=== PATIENT | male | born 1940 | race Caucasian/White ===

== ENCOUNTER 2018-12-28 10:06 | Outpatient (CLI) | payer OTHER, SELFPAY ==
[2018-12-28 13:25] LABS: Anion Gap 8.4 mmol/L (3-11); BUN 19 mg/dL (7-18); CO2 30.6 mmol/L (21.0-32.0); CREATININE 1.36 mg/dL (0.70-1.30); Calcium 9.6 mg/dL (8.5-10.1); Chloride 103 mmol/L (98-107); Estimated GFR 50.81 (mL/min/1.73m2); Glucose 91 mg/dL (70-100); Potassium 4.3 mmol/L (3.5-5.1); Sodium 142 mmol/L (136-145)
== END 2018-12-28 10:26 ==
PROVIDERS: PCP Family Medicine; Visit Provider Family Medicine
DX: I10 Essential (primary) hypertension (principal)
CPT/HCPCS: 36415; 80048

== ENCOUNTER 2020-02-24 10:31 | Outpatient (CLI) | payer OTHER, SELFPAY ==
--- NOTE | 2020-02-24 10:30 | DI.RAD_ITS ---
EXAM: XR KNEE LT 3V AP,LAT,RONEY CLINICAL HISTORY: LT KNEE PAIN, M25.562 TECHNIQUE: COMPARISON: No exams were available for comparison FINDINGS: Three views were obtained. There is a total knee joint replacement in position. The components appe ar well seated. No other significant bony abnormality seen. IMPRESSION:
== END 2020-02-24 10:51 ==
PROVIDERS: PCP Family Medicine; Visit Provider Orthopaedic Surgery Adult Reconstructive Orthopaedic Surgery
DX: M25.562 Pain in left knee (principal); Z96.652 Presence of left artificial knee joint
CPT/HCPCS: 73562

== ENCOUNTER 2020-02-29 17:23 | Emergency (ER) | payer OTHER, SELFPAY ==
[2020-02-29] VITALS (17 sets, daily range): BP systolic 117–136; BP diastolic 65–86; PULSE 70–104; RESP 14–19; TEMP 36.7; O2SAT 93–97
--- NOTE | 2020-02-29 17:32 | W.ED.GENAD ---
Discharge Plan Disposition Patient Disposition: HOME Condition: Stable Discharge Details Chief Complaint: GI Bleed Clinical Impression: Rectal bleeding Primary Care Provider: Monster Saunders ED Provider: Bishop Nogueira Home Meds and New Rx's Prescriptions: Continued ibuprofen 200 MG capsule 4 cap PO PRN RF: 0 aspirin [Aspir-81] 81 MG tablet,delayed release (DR/EC) 1 tab PO DAILY RF: 0 amoxicillin 500 MG capsule 4 cap PO PRN Qty: 4 RF: 2 triamcinolone acetonide 15 GM cream 0 Topical BID Qty: 30 RF: 3 losartan-hydrochlorothiazide 50-12.5 mg tablet 1 tab PO DAILY Qty: 90 RF: 4 Discharge Instructions Instructions: Rectal Bleeding (ED) Additional Instructions: At this time laboratory values do not reveal any obvious emergent process and your vital signs are stable. I have spoken with Dr. Jacome regarding your case, an outpatient appointment has been scheduled for 9:30 AM on March 15. In the meantime stay adequately hydrated, take [id number] stool softeners and avoid straining while moving her bowels. Please watch for new or worsening symptoms and return to the ER for any concerns. Otherwise I recommend contacting your primary care provider tomorrow for prompt outpatient reevaluation Referrals: Magdalene Jacome MD [ [facility] STAFF PHYSICIAN] - Medical Decision Making 79-year-old gentleman who reports straining to move his bowels earlier today subsequently had bright red blood from his rectum during another hard, small bowel movement. He is otherwise asymptomatic. Denies any pain whatsoever. He does take a baby aspirin daily, otherwise he is not anticoagulated. He reports that his last colonoscopy nearly 10 years ago and a hemorrhoid surgery around 5 years ago, cannot give me many details regarding this. Upon presentation his heart rate was 104 blood pressure 130/86. He appears well, nontoxic, abdomen soft, nontender. Rectal exam does reveal a small amount of bright red blood however brown stool is noted, no obvious hemorrhoid noted. Sphincter tone is normal. No active bleeding identified. Given his age, will obtain routine laboratory values including coagulation studies, give IV fluid, and I will obtain an EKG given his pulse was 104 in triage although during my examination it was in the 80s. I did discuss the case with Dr. Matias. Laboratory values are unremarkable, white blood cell count of 8.66 hemoglobin 14.6 hematocrit 43.5 platelet count 301. Electrolytes unremarkable. Creatinine of 1.43, GFR 47.83 which appears to be about baseline. INR 1.0. Type and screen reveals A positive blood. Repeat vital signs reveal a heart rate in the 70s, blood pressure 117/72. Patient does not have any more bleeding while under my care. He appears well, nontoxic and remains otherwise asymptomatic. I reached out to our surgical team, Dr. Jacome, she is aware of the case, and she will be happy to evaluate the patient as an outpatient on March 15 at 9:30 AM. This was relayed to the patient. He was encouraged to stay adequately hydrated, [id number] stool softeners, and encouraged to return to the ER for new or worsening symptoms. Otherwise he will reach out to his primary care provider tomorrow for prompt outpatient reevaluation and follow-up with surgery as scheduled Medical Records Medical records reviewed: Yes I reviewed the patient's medical records. Lab Data Lab results reviewed: Yes I reviewed the patient's lab results. Lab results narrative: Laboratory Tests Range/Units 02/29/20 02/29/20 02/29/20 17:45 17:45 17:45 WBC (4.4-10.8) k/cumm 8.66 RBC (4.50-6.00) m/cumm 4.88 Hgb (13.5-17.5) g/dL 14.6 Hct (40.0-50.0) % 43.5 MCV (80-95) fL 89.1 MCH (27.0-33.0) pg 29.9 MCHC (32.0-36.0) g/dL 33.6 RDW (11.8-14.1) % 13.4 Plt Count (130-400) x1000/uL 301 MPV (8.0-11.0) fL 9.8 Immature Gran % % 0.1 Neutrophils % 51.9 Lymphocytes % 35.3 Monocytes % 8.1 Eosinophils % 4.0 Basophils % 0.6 Absolute Neutrophils (1.2-6.7) k/cumm 4.49 Absolute Lymphocytes (1.2-3.4) k/cumm 3.06 Absolute Monocytes (0.11-0.7) k/cumm 0.70 Absolute Eosinophils (0.0-0.7) k/cumm 0.35 Absolute Basophils (0.0-0.2) k/cumm 0.05 PT (9.3-11.0) sec 9.9 INR (0.9-1.1) 1.0 Sodium (136-145) mmol/L 138 Potassium (3.5-5.1) mmol/L 3.6 Chloride (98-107) mmol/L 101 Carbon Dioxide (21.0-32.0) mmol/L 25.4 Anion Gap (3-11) mmol/L 11.6 H BUN (7-18) mg/dL 20 H Creatinine (0.70-1.30) mg/dL 1.43 H Estimated GFR/1.73 m2 (mL/min/1.73m2) 47.83 Glucose (74-106) mg/dL 104 Calcium (8.5-10.1) mg/dL 9.2 Total Bilirubin (0.2-1.0) mg/dL 0.4 AST (15-37) U/L 18 ALT (16-63) U/L 18 Alkaline Phosphatase (46-116) U/L 70 Total Protein (6.4-8.2) g/dL 7.3 Albumin (3.4-5.0) g/dL 4.0 Lipase (73-393) U/L 134 Patient ABO/Rh Antibody Screen Range/Units 02/29/20 17:45 WBC (4.4-10.8) k/cumm RBC (4.50-6.00) m/cumm Hgb (13.5-17.5) g/dL Hct (40.0-50.0) % MCV (80-95) fL MCH (27.0-33.0) pg MCHC (32.0-36.0) g/dL RDW (11.8-14.1) % Plt Count (130-400) x1000/uL MPV (8.0-11.0) fL Immature Gran % % Neutrophils % Lymphocytes % Monocytes % Eosinophils % Basophils % Absolute Neutrophils (1.2-6.7) k/cumm Absolute Lymphocytes (1.2-3.4) k/cumm Absolute Monocytes (0.11-0.7) k/cumm Absolute Eosinophils (0.0-0.7) k/cumm Absolute Basophils (0.0-0.2) k/cumm PT (9.3-11.0) sec INR (0.9-1.1) Sodium (136-145) mmol/L Potassium (3.5-5.1) mmol/L Chloride (98-107) mmol/L Carbon Dioxide (21.0-32.0) mmol/L Anion Gap (3-11) mmol/L BUN (7-18) mg/dL Creatinine (0.70-1.30) mg/dL Estimated GFR/1.73 m2 (mL/min/1.73m2) Glucose (74-106) mg/dL Calcium (8.5-10.1) mg/dL Total Bilirubin (0.2-1.0) mg/dL AST (15-37) U/L ALT (16-63) U/L Alkaline Phosphatase (46-116) U/L Total Protein (6.4-8.2) g/dL Albumin (3.4-5.0) g/dL Lipase (73-393) U/L Patient ABO/Rh A Positive Antibody Screen Negative ECG Data Attestation: I personally reviewed and interpreted this ECG (s) as follows: Interpretation: EKG performed at 1746. Reviewed and interpreted with Dr. Matias. Sinus rhythm, ventricular of 74. No STEMI HPI General Mode of arrival: ambulatory. Date/Time Provider Initiated Documentation: 02/29/20 17:31. Limitations to Documentation: no limitations. Information obtained by: patient. HPI Narrative: This is a 79-year-old gentleman with chronic renal insufficiency, hypertension, diverticulosis, family history of Leiden 5 mutation, presenting to the ER for passing bright red blood from his rectum. Patient reports that this morning he had to strain to have a small hard bowel movement. Subsequently had a normal bowel movement around noon time that was may be slightly more loose than usual. Then just 30 minutes ago he thought he was going to pass gas, realized that he had blood on his underwear, subsequently had a hard bowel movement with bright red blood mixed in with brown stool. Patient is otherwise asymptomatic. He denies any feeling of lightheaded or dizziness, visual changes, chest pain, shortness of breath, abdominal pain, nausea, vomiting, back pain. There is no change in his appetite today. He believes that his last colonoscopy was approximately 10 years ago. He did have a hemorrhoid roughly 5 years ago that required surgical intervention. He takes a baby aspirin daily but is not anticoagulated. He denies easy bruising or bleeding. Denies recent illness or trauma. Related Data Home Medications Medication Instructions Recorded Confirmed aspirin [Aspir-81] 1 tab PO DAILY 11/10/14 02/29/20 ibuprofen 4 cap PO PRN 11/10/14 02/29/20 amoxicillin 4 cap PO PRN #4 cap 12/16/16 02/29/20 triamcinolone acetonide 0 TOPICAL BID #30 g 05/15/17 09/13/19 losartan 50 mg-hydrochlorothiazide 1 tab PO DAILY #90 tab-cap 10/19/19 02/29/20 12.5 mg tablet Previous Rx's Medication Instructions Recorded losartan 50 mg-hydrochlorothiazide 1 tab PO DAILY #90 tab-cap 10/19/19 12.5 mg tablet Allergies Allergy/AdvReac Type Severity Reaction Status Date / Time No Known Allergies Allergy Unverified 02/29/20 17:32 General Stated Complaint: GI Bleed CHRISTA: 2 Review of Systems Constitutional Constitutional: Denies fatigue, Denies fever(s), Denies headache(s) and Denies poor appetite Eyes Eyes: Denies change in vision ENT Ears, Nose, Mouth, and Throat: Denies headache(s) Cardiovascular Cardiovascular: Denies chest pain and Denies dyspnea Respiratory Respiratory: Denies cough and Denies dyspnea Gastrointestinal Gastrointestinal: Denies abdominal pain, Denies melena, Reports hematochezia, Reports constipation (Multiple hard, small stools), Denies diarrhea, Reports loose stools, Denies nausea and Denies vomiting Genitourinary Genitourinary: Denies hematuria and Denies dysuria Musculoskeletal Musculoskeletal: Denies back pain Integumentary/Breasts Skin/Breast: Denies rash Neurologic Neurologic: Denies headache(s) Endocrine Endocrine: Denies fatigue Hematologic/Lymphatic Hematologic/Lymphatic: Denies easy bleeding and Denies easy bruising [facility] Medical History Hemorrhoidal skin tag (Resolved) HTN (hypertension) Osteoarthritis Sigmoid diverticulosis Surgical History Andrectal including Endoscopy DISC SURGERY 05/2014 LOW BACK Extraction of cataract (~2005) EYE SURGERY (~2003) Repair of inguinal hernia LEFT Replacement of total knee joint (~2004) LEFT Vasectomy Family History Mother , 99 Essential hypertension Father , 88 No problems noted. family history Alzheimer's disease Sister No problems noted. Brother No problems noted. Brother No problems noted. Brother No problems noted. Son No problems noted. Son No problems noted. Daughter No problems noted. Social History Smoking/Tobacco Use Status: Former Tobacco Use Quit Date: 08/31/78 Alcohol Intake: never Drug use: Never Substance use type: does not use Caregiver/Support person: No Household members: spouse Communication Needs: None Pets and animals: Yes Pets and animals: dog(s) Current gender identity: male What is your relationship status?: How often do you talk on the phone with friends or family?: decline to answer How often do you get together with friends or relatives?: decline to answer How often do you attend zoroastrianism or scientology services?: decline to answer Do you belong to any clubs or organized social groups?: decline to answer Panel score (0-1 are the most socially isolated patients): 1 What type of physical activity do you participate in: decline to answer Duration: decline to answer Frequency: decline to answer Sol/Episcopalian: No preference Special sol needs: No Do you feel safe at home: Yes Do you feel safe in your relationship?: Yes Exam Const General: cooperative, healthy appearing, comfortable and no acute distress Orientation: alert, awake and oriented x3 HENMT Head: normal to inspection, normocephalic and atraumatic Face and sinus: normal facial exam Mouth: moist mucous membranes Eyes Conjunctivae: conjunctivae normal Sclera: sclerae normal Neck Neck: normal visual inspection, full ROM, no meningeal signs, trachea midline and supple Resp Effort & Inspection: normal respiratory effort and able to speak in complete sentences Auscultation: clear to auscultation bilaterally Cardio Rate: regular rate Rhythm: regular rhythm GI Inspection: normal to inspection Palpation: soft, not firm, no guarding, not rigid and nontender Auscultation: normal bowel sounds Rectal Exam: visual inspection normal, normal sphincter tone, prostate normal, heme positive stool gross blood (Scant amount) and No tenderness Back/Spine/Pelvis Back: No back tenderness Skin General skin exam: no rashes or lesions noted Neuro General: patient alert, patient awake, patient oriented x3, moves all extremities and no focal motor deficits Cranial Nerves: CN's II-XI intact bilaterally Cognition: normal cognition Speech: speech normal Gait: normal gait Motor: muscle tone normal throughout and strength 5/5 throughout Sensory Exam: no sensory deficits noted Extrem General: normal to inspection, full ROM, capillary refill normal, no pedal edema and no calf tenderness Psych Appearance: grossly normal Mental Status: mental status grossly normal Course Vital Signs Vital signs: Vital Signs Temperature 36.7 C 02/29/20 17:26 Pulse 104 H 02/29/20 17:26 Respiratory Rate 16 02/29/20 17:26 Blood Pressure 130/86 02/29/20 17:26 Pulse Oximetry 96 02/29/20 17:26 Temperature 36.7 C 02/29/20 17:26 Temperature Source Temporal Artery Scan 02/29/20 17:26 Pulse 104 H 02/29/20 17:26 Respiratory Rate 16 02/29/20 17:26 Respiratory Effort Non-Labored 02/29/20 17:30 Blood Pressure 130/86 02/29/20 17:26 Blood Pressure Position Sitting 02/29/20 17:26 Pulse Oximetry 96 02/29/20 17:26 Oxygen Delivery Method Room Air 02/29/20 17:26 Oxygen Flow Rate 0 02/29/20 17:26 Pain Level 0 02/29/20 17:26
[2020-02-29] MEDS: Normal Saline 1,000 ML 1000 ML IV (17:45)
[2020-02-29] MEDS: Normal Saline Flush 10 ML SYR IVP (17:51)
[2020-02-29 18:01] LABS: Abs Immature Grans 0.01 k/cumm (0.0-0.09); Absolute Basophil Count 0.05 k/cumm (0.0-0.2); Absolute Eosinophil Count 0.35 k/cumm (0.0-0.7); Absolute Lymphocyte Count 3.06 k/cumm (1.2-3.4); Absolute Neutrophil Count 4.49 k/cumm (1.2-6.7); Basophils % 0.6; HCT 43.5 % (40.0-50.0); HGB 14.6 g/dL (13.5-17.5); Immature Grans % 0.1 %; Lymphocytes % 35.3; Mean Corp. HGB Concentration 33.6 g/dL (32.0-36.0); Mean Corpuscular Hemoglobin 29.9 pg (27.0-33.0); Mean Corpuscular Volume 89.1 fL (80-95); Mean Platelet Volume 9.8 fL (8.0-11.0); Monocytes % 8.1; Neutrophils % 51.9; Platelet Count 301 x1000/uL (130-400); RBC 4.88 m/cumm (4.50-6.00); RBC Distribution Width 13.4 % (11.8-14.1); White Blood Cell Count 8.66 k/cumm (4.4-10.8)
[2020-02-29 18:10] LABS: Prothrombin Time 9.9 sec (9.3-11.0)
[2020-02-29 18:13] LABS: ALT 18 U/L (16-63); AST 18 U/L (15-37); Alkaline Phosphatase 70 U/L (46-116); Anion Gap 11.6 mmol/L (3-11); BUN 20 mg/dL (7-18); Bilirubin, Total 0.4 mg/dL (0.2-1.0); CO2 25.4 mmol/L (21.0-32.0); CREATININE 1.43 mg/dL (0.70-1.30); Calcium 9.2 mg/dL (8.5-10.1); Chloride 101 mmol/L (98-107); Estimated GFR 47.83 (mL/min/1.73m2); Glucose 104 mg/dL (74-106); Lipase 134 U/L (73-393); Potassium 3.6 mmol/L (3.5-5.1); Sodium 138 mmol/L (136-145); Total Protein 7.3 g/dL (6.4-8.2)
== END 2020-02-29 19:11 | disposition home or self-care (01) ==
PROVIDERS: Emergency Provider Physician Assistant; PCP Family Medicine
DX: K62.5 Hemorrhage of anus and rectum (principal); D68.51 Activated protein C resistance; N18.9 Chronic kidney disease, unspecified; I12.9 Hypertensive chronic kidney disease with stage 1 through stage 4 chronic kidney disease, or unspecified chronic kidney disease
CPT/HCPCS: 36415; 80053; 83690; 86850; 86900; 86901; 93005; 96360; 99284; 85025; 85610; 93010

== ENCOUNTER 2020-03-07 03:15 | Outpatient (CLI) | payer OTHER, SELFPAY ==
[2020-03-07 14:30] LABS: Absolute Basophil Count 0.04 k/cumm (0.0-0.2); Absolute Eosinophil Count 0.29 k/cumm (0.0-0.7); Absolute Lymphocyte Count 2.24 k/cumm (1.2-3.4); Absolute Monocyte Count 0.41 k/cumm (0.11-0.7); Basophils % 0.5; Eosinophils % 3.9; HCT 32.2 % (40.0-50.0); HGB 10.5 g/dL (13.5-17.5); Lymphocytes % 29.9; Mean Corp. HGB Concentration 32.6 g/dL (32.0-36.0); Mean Corpuscular Hemoglobin 30.2 pg (27.0-33.0); Mean Corpuscular Volume 92.5 fL (80-95); Monocytes % 5.5; Neutrophils % 60.2; Platelet Count 324 x1000/uL (130-400); RBC 3.48 m/cumm (4.50-6.00); RBC Distribution Width 13.7 % (11.8-14.1); White Blood Cell Count 7.48 k/cumm (4.4-10.8)
== END 2020-03-07 03:35 ==
PROVIDERS: PCP Family Medicine; Visit Provider Family Medicine
DX: F17.200 Nicotine dependence, unspecified, uncomplicated (principal)
CPT/HCPCS: 36415; 85025

== ENCOUNTER → 2020-03-15 09:11 | Outpatient (BNVA) | payer OTHER, SELFPAY | PROVIDERS: PCP Family Medicine; Referring Provider Family Medicine; Visit Provider Physical Therapy Assistant | DX: K62.5 Hemorrhage of anus and rectum (principal); I10 Essential (primary) hypertension; Z86.010 Personal history of colon polyps | CPT/HCPCS: 99203; 99214 ==

== ENCOUNTER 2020-05-04 06:15 | Day surgery (SDC) | payer OTHER, SELFPAY ==
[2020-05-04 06:24] VITALS: BP 122/83; PULSE 80; RESP 16; TEMP 36.5; O2SAT 93
[2020-05-04] MEDS: Lactated Ringers 1,000 ML 80 ML IV (06:45)
--- NOTE | 2020-05-04 07:22 | W.PM.HP.N ---
Date of service: 05/04/20 Time of Service: 07:22 Assessment and Plan Assessment and plan (1) Rectal bleeding: Status: Acute Assessment and plan: I advised colonoscopy. The procedure was described including the risks of perforation with need for surgery or bleeding. Patient agrees to proceed. History of Present Illness Narrative: 79 y/o male with a history of HTN presents for colonoscopy for evaluation of a 2 day episode (02/28-03/01) of bright red bleeding from his rectum. He states that when the bleeding occurred, he was having difficulty passing a BM. He states that he has held his aspirin and has not experienced any rectal bleeding since that time. Labs from 03/07/2020 Hgb 10.5, Hct 32.2. He was instructed to start a stool softener, which he did not do. His last screening was in 2014, which was remarkable for moderate sigmoid diverticula. Previous Colonoscopy in 2011 was remarkable for tubulovillious adenomatous polyp. He denies a family history of colon cancer. He denies any changes in bowel habits (other than described above) including black tarry stools, abdominal pain, diarrhea or constipation. He denies constitutional symptoms. Denies use of marijuana or any other recreational or illegal drugs. He denies chest pain, palpitations, dyspnea or dyspnea with exertion. He denies prior history or family history of adverse reactions or complications with anesthesia. Review of Systems All systems reviewed & are unremarkable except as noted in HPI and below PFSH Medical History (Updated 05/04/20 @ 07:24 by Meme Swartz MD) Hemorrhoidal skin tag (Resolved) HTN (hypertension) Osteoarthritis Sigmoid diverticulosis Surgical History Andrectal including Endoscopy DISC SURGERY 05/2014 LOW BACK Extraction of cataract (~2005) EYE SURGERY (~2003) Repair of inguinal hernia LEFT Replacement of total knee joint (~2004) LEFT Vasectomy Family History Mother , 99 Essential hypertension Father , 88 No problems noted. family history Alzheimer's disease Sister No problems noted. Brother No problems noted. Brother No problems noted. Brother No problems noted. Son No problems noted. Son No problems noted. Daughter No problems noted. Social History Smoking/Tobacco Use Status: Former Tobacco Use Quit Date: 08/31/78 Alcohol Intake: never Drug use: Never Substance use type: does not use Caregiver/Support person: No Household members: spouse Communication Needs: None Pets and animals: Yes Pets and animals: dog(s) Current gender identity: male What is your relationship status?: How often do you talk on the phone with friends or family?: decline to answer How often do you get together with friends or relatives?: decline to answer How often do you attend adventism or congregation services?: decline to answer Do you belong to any clubs or organized social groups?: decline to answer Panel score (0-1 are the most socially isolated patients): 1 What type of physical activity do you participate in: decline to answer Duration: decline to answer Frequency: decline to answer Sol/Denominational: No preference Special sol needs: No Do you feel safe at home: Yes Do you feel safe in your relationship?: Yes Meds Home Medications and Allergies Home Medications Medication Instructions Recorded Confirmed Type triamcinolone acetonide [Triderm] 1 applic TOPICAL BID #30 g 05/15/17 05/04/20 History losartan 50 mg-hydrochlorothiazide 1 tab PO DAILY #90 tab-cap 10/19/19 05/04/20 Rx 12.5 mg tablet amoxicillin 500 mg capsule 2,000 mg PO PRN #4 cap 03/06/20 05/04/20 Rx aspirin 81 mg tablet,delayed 81 mg PO DAILY 03/15/20 05/02/20 History release bisacodyl 5 mg tablet,delayed 5 mg PO ONCE #4 tab 03/15/20 05/04/20 Rx release polyethylene glycol 3350 17 238 g PO ONCE #238 gm 03/15/20 05/04/20 Rx gram/dose oral powder Allergies Allergy/AdvReac Type Severity Reaction Status Date / Time No Known Allergies Allergy Unverified 05/02/20 14:30 Exam Narrative Exam Narrative: Alert Lungs CTA Heart RRR Abdomen soft, nontender Results Last Vital Signs Temp 97.7 F 05/04/20 06:24 Pulse 80 05/04/20 06:24 Resp 16 05/04/20 06:24 BP 122/83 05/04/20 06:24 Pulse Ox 93 L 05/04/20 06:24 COVID-19 Screening Have you,or household,traveled outside [place] in last 14 days?: No Had IN PERSON contact w/suspected or confirmed C-19 person: No
--- NOTE | 2020-05-04 07:56 | BOWEL_PTH ---
PATIENT: Aly Smith LOC: [facility] U#:[id number] AGE/SX: 79/M ROOM: RE05/04/[address]: Meme Swartz MD : 1940 BED: DIS: 05/04/2020 SPEC #: [id number] RECD: 05/04/20 09:29 STATUS: KADE REQ #: [id number] RAINA: 05/04/20 07:[address]: Meme Swartz DEPT: Surgical Specimen RECD BY: Zayda Ellis ENTERED: 05/04/20 09:30 SP TYPE: Bowel OTHR DR: Kike Anthony MD Tissues: 1 - BIOPSY BOWEL Procedures: GROSS AND MICRO LEVEL 4 Comments: [id number]
--- NOTE | 2020-05-04 08:14 | W.PM.DSUDISC ---
Discharge Plan Disposition Patient Disposition: HOME Condition: Good Discharge Details Reason For Visit: Colonoscopy Attending Provider: Meme Swartz Primary Care Provider: Kike Anthony Home Meds and New Rx's Prescriptions: Continued amoxicillin 500 mg capsule 2,000 mg PO PRN Qty: 4 RF: 0 aspirin [Adult Aspirin Regimen] 81 mg tablet,delayed release (DR/EC) 81 mg PO DAILY RF: 0 triamcinolone acetonide [Triderm] 15 GM cream 1 applic Topical BID Qty: 30 RF: 3 losartan-hydrochlorothiazide 50-12.5 mg tablet 1 tab PO DAILY Qty: 90 RF: 4 Discontinued polyethylene glycol 3350 17 gram/dose powder 238 g PO ONCE Qty: 238 RF: 0 bisacodyl [Dulcolax (bisacodyl)] 5 mg tablet,delayed release (DR/EC) 5 mg PO ONCE Qty: 4 RF: 0 Discharge Instructions Additional Instructions: Findings: A rectal mass was found. Biopsies were done so a small amount of bleeding is expected. Follow up: My office will contact you with biopsy results and to plan further testing (CT scan). Please call if you develop: fevers >101.5 Nausea or Vomiting Abdominal pain that is not transient DAY SURGERY UNIT POST COLONOSCOPY INSTRUCTIONS 1. Because there will be medication in your system for the next 24 hours, you may feel a little sleepy. Your coordination will be affected. Therefore: a. Do not drive or operate dangerous equipment for 24 hours. b. Do not drink alcohol beverages for 24 hours (not even beer). c. Plan to go home and rest for the day. 2. Generally there are no restrictions on your activity after a day or so has gone by, but you may feel a bit fatigued for a few days. 3 After you arrive home you may have a light meal and return to a normal diet as you can tolerate it without feeling sick to your stomach. 4. After surgery, you may feel pain or discomfort. This should be only transient, but if it persists please contact your doctor. 5. If there are any questions regarding the findings of your procedure, please feel free to contact your doctor. 6. If you are unable to contact your doctor with a problem, contact the hospital at [phone]. 7. Continue all your regular medications unless directed otherwise. I understand the above instructions and have no questions. Signature of Patient or Responsible Adult Escort Date/Time Name of Responsible Adult Escort Signature of Nurse Date/Time Activity:: Activity as Tolerated Diet:: As Tolerated Discharge Orders Discharge Orders: Discharge Order (Routine); Ordered 05/04/20 Ordered By: Meme Swartz DS: Diagnosis Discharge Diagnosis (1) Rectal mass: Status: Acute
--- NOTE | 2020-05-04 08:16 | W.COLOREPORT ---
Date of service: 05/04/20 Time of Service: 08:16 Colonoscopy Report Date of procedure: 05/04/20 Pre-op diagnosis general: Rectal bleeding Post-op diagnosis procedure note: other (Rectal mass) Procedure: Colonoscopy with biopsy Surgeon: Meme Swartz Anesthesia proc note operative: MAC Indications: This 79 year old man had a two day episode of rectal bleeding in February that resolved. He presents for colonoscopy. Prior colonoscopy in 2014 was normal. Procedure Description: The patient was placed in the left Vincent position. Propofol was titrated to sedation. Digital rectal examination revealed a mass in the left posterior location. This did not seem fixed. The lower aspect was about 4cm from the anal opening. The scope was advanced to the cecum without difficulty. The ileocecal valve and appendiceal orifice were clearly identified. The prep was good. The scope was slowly withdrawn over the course of greater than 6 minutes with no abnormalities seen in the ascending, transverse, descending or sigmoid colon. The mass in the rectum encompassed about 30% of the bowel wall and was not obstructing. Biopsies were performed. Visually this is a malignancy. The patient tolerated the procedure well and was stable to recovery. CT chest/abd/pelvis ordered and referral made to [facility] [place] for colorectal surgery due to the low location of the tumor.
[2020-05-04 08:37] VITALS: BP 118/66; PULSE 75; RESP 16; TEMP 36.5; O2SAT 96
== END 2020-05-04 08:50 | disposition home or self-care (01) ==
PROVIDERS: PCP Family Medicine; Visit Provider Surgery
PROC: 0DJD8ZZ Inspection of Lower Intestinal Tract, Via Natural or Artificial Opening Endoscopic (ICD-10-PCS; CPT 45378; principal; 2020-05-04 07:30)
DX: C20 Malignant neoplasm of rectum (principal); I10 Essential (primary) hypertension; Z86.010 Personal history of colon polyps; K57.30 Diverticulosis of large intestine without perforation or abscess without bleeding
CPT/HCPCS: 45380; 88305; NC; J2001

== ENCOUNTER 2020-05-14 01:16 | Outpatient (CLI) | payer OTHER, SELFPAY ==
--- NOTE | 2020-05-14 07:15 | DI.CT_ITS ---
EXAM: CT CHEST/ABD/PEL W CLINICAL HISTORY: Rectal cancer,C20 TECHNIQUE: COMPARISON: No exams were available for comparison FINDINGS: CT examination of the chest, abdomen, pelvis was performed with bolus infusion of 100 cc of Omnipaque 350 and ingestion dilute barium. There are areas linear scarring in both lung bases. No suspicious intrapulmonary lesion identified. Tiny fissural nodule noted on the right, tiny subpleural nodule noted on the left. No pleural effus ion. Cardiac size is within normal limits. Coronary artery calcification noted. No evidence of pulmonary embolic disease. No thoracic aortic aneurysm or dissection. No axillary or supraclavicular adenopathy. The liver and spleen appear normal. Pancreas appears intact. Gallbladder and bile ducts are CT norm al. Incidental midpole renal cyst noted on the right measuring roughly 2 cm in diameter. No urinary tract calcification or obstruction. Adrenals appear normal. Abdominal aorta is of normal diameter, major visceral branches appear normal. No significant retrope ritoneal adenopathy. No mesenteric adenopathy. Appendix is normal. No colonic obstruction or diverticulitis. The patient reportedly has recently d iagnosed rectal carcinoma and there is some eccentric wall thickening of the rectum. There are few n onspecific perirectal fat lymph nodes visible, the largest measuring about 8 millimeters in diameter, no gross pelvic sidewall adenopathy is seen. Urinary bladder shows mildly thickened consistent with mild chronic bladder outlet obstruction. Pros smith is enlarged. Undescended testis noted on the right. No significant bony abnormality identified in the region surveyed to suggest bony metastatic disease. IMPRESSION: Mild prominence of multiple perirectal lymph nodes, the largest about 8 millimeters in diameter, in a patient with reported recently diagnosed rectal carcinoma. These may represent malignant nodes. No remote metastatic disease identified. RADIATION DOSE DELIVERED: Total DLP
[2020-05-14] MEDS: Omnipaque 350 MG/ML 50 ML BTL IJ (08:06)
[2020-05-14 08:07] LABS: CREATININE 1.37 mg/dL (0.70-1.30); Estimated GFR 50.25 (mL/min/1.73m2)
[2020-05-14] MEDS: Omnipaque 350 MG/ML 100 ML BTL IJ (08:07)
== END 2020-05-14 01:36 ==
PROVIDERS: PCP Family Medicine; Visit Provider Surgery
DX: K62.89 Other specified diseases of anus and rectum (principal); C20 Malignant neoplasm of rectum
CPT/HCPCS: 74177; 71260; 82565; J3490; Q9967

== ENCOUNTER 2020-06-11 01:29 | Outpatient (CLI) | payer OTHER, SELFPAY ==
[2020-06-11 13:23] LABS: ALT 17 U/L (16-63); AST 16 U/L (15-37); Albumin 4.2 g/dL (3.4-5.0); Alkaline Phosphatase 84 U/L (46-116); Anion Gap 9.4 mmol/L (3-11); BUN 17 mg/dL (7-18); Bilirubin, Total 0.3 mg/dL (0.2-1.0); CO2 29.6 mmol/L (21.0-32.0); CREATININE 1.39 mg/dL (0.70-1.30); Calcium 9.4 mg/dL (8.5-10.1); Chloride 102 mmol/L (98-107); Estimated GFR 49.42 (mL/min/1.73m2); Glucose 91 mg/dL (74-106); Potassium 4.2 mmol/L (3.5-5.1); Sodium 141 mmol/L (136-145); Total Protein 7.4 g/dL (6.4-8.2)
[2020-06-11 17:18] LABS: CEA 1.3 ng/mL (See Note)
== END 2020-06-11 01:49 ==
PROVIDERS: PCP Family Medicine; Visit Provider Internal Medicine Hematology & Oncology
DX: C20 Malignant neoplasm of rectum (principal)
CPT/HCPCS: 36415; 80053; 82378

== ENCOUNTER 2020-06-22 09:57 | Outpatient (RCR) | payer OTHER, SELFPAY ==
[2020-06-22] MEDS: Normal Saline Flush 10 ML SYR IVP (10:19)
[2020-06-22] MEDS: Heparin 500 UNITS/5 ML SYRINGE IVP (10:20)
[2020-06-22 11:04] LABS: Abs Immature Grans 0.01 10^3/uL (0.0-0.06); Absolute Basophil Count 0.04 10^3/uL (0.0-0.2); Absolute Eosinophil Count 0.31 10^3/uL (0.0-0.7); Absolute Lymphocyte Count 1.93 10^3/uL (1.2-3.4); Absolute Monocyte Count 0.47 10^3/uL (0.1-0.8); Absolute Neutrophil Count 3.23 10^3/uL (1.2-6.7); Basophils % 0.7; Eosinophils % 5.2; HCT 45.2 % (40.0-50.0); HGB 14.8 g/dL (13.5-17.5); Immature Grans % 0.2; Lymphocytes % 32.2; MCH 29.2 pg (27.0-33.0); MCHC 32.7 % (32.0-36.0); MCV 89.3 fL (80-95); MPV 10.3 fL (8.0-11.0); Monocytes % 7.8; Neutrophils % 53.9; Nucleated RBC 0 %; Platelet Count 274 10^3/uL (130-400); RBC 5.06 10^6/uL (4.36-5.78); RDW 12.7 % (11.8-14.1); RDW-SD 41.7 fL; WBC 5.99 10^3/uL (4.4-10.8)
[2020-06-22 11:15] LABS: ALT 14 U/L (16-63); AST 15 U/L (15-37); Albumin 3.7 g/dL (3.4-5.0); Alkaline Phosphatase 76 U/L (46-116); BUN 17 mg/dL (7-18); Bilirubin, Total 0.5 mg/dL (0.2-1.0); Calcium 9.1 mg/dL (8.5-10.1); Chloride 104 mmol/L (98-107); Estimated GFR 53.39 (mL/min/1.73m2); Glucose 104 mg/dL (74-106); Sodium 138 mmol/L (136-145); Total Protein 7.3 g/dL (6.4-8.2)
== END 2020-06-30 23:59 | disposition home or self-care (01) ==
LOC: INF 09:57
PROVIDERS: PCP Family Medicine; Visit Provider Internal Medicine Hematology & Oncology
DX: C20 Malignant neoplasm of rectum (principal); Z45.2 Encounter for adjustment and management of vascular access device
CPT/HCPCS: 36591; 80053; 85025

== ENCOUNTER 2020-07-20 05:07 | Outpatient (RCR) | payer OTHER, SELFPAY ==
[2020-07-06] MEDS: Normal Saline Flush 10 ML SYR IVP (13:08)
[2020-07-06] MEDS: Heparin 500 UNITS/5 ML SYRINGE IV (13:08)
[2020-07-06 13:15] LABS: Abs Immature Grans 0.02 10^3/uL (0.0-0.06); Absolute Basophil Count 0.04 10^3/uL (0.0-0.2); Absolute Eosinophil Count 0.23 10^3/uL (0.0-0.7); Absolute Lymphocyte Count 1.95 10^3/uL (1.2-3.4); Absolute Neutrophil Count 3.48 10^3/uL (1.2-6.7); Basophils % 0.6; Eosinophils % 3.6; HCT 43.7 % (40.0-50.0); HGB 14.2 g/dL (13.5-17.5); Immature Grans % 0.3; Lymphocytes % 30.4; MCH 28.7 pg (27.0-33.0); MCHC 32.5 % (32.0-36.0); MCV 88.3 fL (80-95); MPV 9.6 fL (8.0-11.0); Monocytes % 10.9; Neutrophils % 54.2; Nucleated RBC 0 %; Platelet Count 260 10^3/uL (130-400); RBC 4.95 10^6/uL (4.36-5.78); RDW 12.9 % (11.8-14.1); RDW-SD 41.4 fL; WBC 6.42 10^3/uL (4.4-10.8)
[2020-07-06 13:25] LABS: ALT 14 U/L (16-63); AST 13 U/L (15-37); Albumin 3.7 g/dL (3.4-5.0); Alkaline Phosphatase 75 U/L (46-116); Anion Gap 10.1 mmol/L (3-11); BUN 16 mg/dL (7-18); Bilirubin, Total 0.3 mg/dL (0.2-1.0); CO2 26.9 mmol/L (21.0-32.0); CREATININE 1.36 mg/dL (0.70-1.30); Chloride 102 mmol/L (98-107); Estimated GFR 50.68 (mL/min/1.73m2); Glucose 107 mg/dL (74-106); Potassium 3.7 mmol/L (3.5-5.1); Sodium 139 mmol/L (136-145); Total Protein 7.4 g/dL (6.4-8.2)
[2020-07-20] MEDS: Heparin 500 UNITS/5 ML SYRINGE IV (13:05)
[2020-07-20] MEDS: Normal Saline Flush 10 ML SYR IVP (13:05)
[2020-07-20 13:23] LABS: Abs Immature Grans 0.02 10^3/uL (0.0-0.06); Absolute Basophil Count 0.03 10^3/uL (0.0-0.2); Absolute Eosinophil Count 0.18 10^3/uL (0.0-0.7); Absolute Lymphocyte Count 2.07 10^3/uL (1.2-3.4); Absolute Monocyte Count 0.61 10^3/uL (0.1-0.8); Absolute Neutrophil Count 2.13 10^3/uL (1.2-6.7); Basophils % 0.6; Eosinophils % 3.6; HCT 41.8 % (40.0-50.0); HGB 14.1 g/dL (13.5-17.5); Immature Grans % 0.4; Lymphocytes % 41.1; MCH 29.4 pg (27.0-33.0); MCHC 33.7 % (32.0-36.0); MCV 87.1 fL (80-95); MPV 9.8 fL (8.0-11.0); Monocytes % 12.1; Neutrophils % 42.2; Nucleated RBC 0 %; Platelet Count 189 10^3/uL (130-400); RDW 13.5 % (11.8-14.1); RDW-SD 41.6 fL; WBC 5.04 10^3/uL (4.4-10.8)
[2020-07-20 13:36] LABS: ALT 38 U/L (16-63); AST 38 U/L (15-37); Albumin 3.7 g/dL (3.4-5.0); Alkaline Phosphatase 72 U/L (46-116); Anion Gap 7.4 mmol/L (3-11); BUN 15 mg/dL (7-18); Bilirubin, Total 0.3 mg/dL (0.2-1.0); CO2 28.6 mmol/L (21.0-32.0); CREATININE 1.41 mg/dL (0.70-1.30); Calcium 9.1 mg/dL (8.5-10.1); Chloride 102 mmol/L (98-107); Estimated GFR 48.61 (mL/min/1.73m2); Glucose 117 mg/dL (74-106); Potassium 3.7 mmol/L (3.5-5.1); Sodium 138 mmol/L (136-145); Total Protein 7.3 g/dL (6.4-8.2)
== END 2020-07-30 23:59 | disposition home or self-care (01) ==
LOC: INF 05:07
PROVIDERS: PCP Family Medicine; Visit Provider Internal Medicine Hematology & Oncology
DX: C20 Malignant neoplasm of rectum (principal); Z45.2 Encounter for adjustment and management of vascular access device
CPT/HCPCS: 36591; 80053; 85025

== ENCOUNTER 2020-08-15 00:44 | Outpatient (CLI) | payer OTHER, SELFPAY ==
--- NOTE | 2020-08-15 | DI.CT_ITS ---
EXAM: CT CHEST/ABD/PEL W CLINICAL HISTORY: RECTAL CA,C20,ASSESS TREATMENT RESPONSE. TECHNIQUE: Imaging Protocol: Axial computed tomography images with coronal and sagittal reformatted images were created and reviewed CONTRAST MATERIAL: Intravenous: Omnipaque 350 Contrast volume:100 ml Oral: Yes COMPARISON: CT CT CHEST/ABD/PEL W from 05/14/2020 FINDINGS: CHEST: LUNGS: There are no new nodules in the lung abbasi. Small noncalcified nodular density measuring 8 x 6 millimeters noted in the right lung, unchanged. There is possibly of this represents a pseudo no dule at the reflection of the pleura between the right upper and right middle lobes. This is typical location for this. Otherwise, there mild increased markings in the posterior basal segments of the lower lobes, again more prominent on the right side, benign appearance. No pleural effusions. No fi ndings in the mainstem bronchi and trachea. MEDIASTINUM: There is no hilar nor mediastinal adenopathy. Visualized thyroid unremarkable. CARDIAC: Heart size is normal. There is no pericardial effusion.Caliber of the thoracic aorta is wit hin normal limits. OSSEOUS: No significant osseous lesions.. ABDOMEN: There is no ascites. LIVER: There are no focal hepatic lesions nor dilatation of intrahepatic ducts. GALLBLADDER/BILIARY: No obvious gallbladder pathology. CBD is not dilated. PANCREAS: No evidence of pancreatic mass nor dilatation of the pancreatic duct. SPLEEN: Spleen is not enlarged. There are no intrasplenic lesions. Splenic and portal veins are samaniego nt. ADRENALS: There are no significant adrenal masses. KIDNEYS: No calculi nor hydronephrosis. No solid renal masses. There is unchanged cyst in the lateral cortex of the right kidney which measures 2 by 1.5 centimetres ABDOMINAL AORTA: The abdominal aorta is atherosclerotic mild aneurysmal dilatation exhibiting maximum diameter of 2.6 centimetres. No aneurysmal dilatation of the iliac arteries evident. ABDOMINAL WALL/GI: No evidence of significant anterior abdominal wall hernia. No bowel obstruction. PELVIS: LYMPH NODES: There is no intrapelvic nor inguinal adenopathy. Previously scribe small lymph node in the left perirectal region is not seen on the present study. GI: No evidence of appendicitis.Sigmoid diverticulosis. No obvious acute diverticulitis. URINARY BLADDER: Uniformly thickened wall. REPRODUCTIVE: Prostate gland slightly enlarged. OSSEOUS: No significant osseous lesions. IMPRESSION: 1. Solitary stable nodule as described above in the right lung, unchanged from the CT scan of 020 and possibly representing a pseudo nodule, given that it is at the pleural reflection between the right upper and right middle lobes, this being the typical area for finding a pseudo nodule. No add itional pulmonary findings nor pleural effusions nor intrathoracic adenopathy. 2. No evidence of metastatic disease in the abdomen and pelvis and no ascites. 3. Benign cyst in the right kidney again noted. No solid renal masses. No hydronephrosis. 4. No lytic osseous lesions evident. RADIATION DOSE DELIVERED: 1,308.06mGy.cm Total DLP DATA REPOSITORY: All CT scans at this facility are submitted to the National Radiology Data Registry (NRDR) Dose Index Registry (DIR) with the [employer] (A[employer]). RADIATION OPTIMIZATION: All CT scans at this facility use at least one of these dose optimization te chniques: automated exposure control; mA and/or kV adjustment per patient size (includes targeted exa ms where dose is matched to clinical indication); or iterative reconstruction.
[2020-08-15] MEDS: Breeza Beverage 473 ML BTL PO ×2 (09:23→09:24)
[2020-08-15] MEDS: Omnipaque 350 MG/ML 50 ML BTL PO (09:25)
[2020-08-15] MEDS: Omnipaque 350 MG/ML 100 ML BTL IJ (10:27)
[2020-08-15] MEDS: Normal Saline - Diluent 50 ML VIAL IV (10:29)
[2020-08-15] MEDS: Normal Saline Flush 10 ML SYR IVP (10:30)
== END 2020-08-15 01:04 ==
PROVIDERS: PCP Family Medicine; Visit Provider Nurse Practitioner Family
DX: C20 Malignant neoplasm of rectum (principal); R91.1 Solitary pulmonary nodule; N28.1 Cyst of kidney, acquired
CPT/HCPCS: 74177; 71260; J3490; Q9967

== ENCOUNTER 2020-08-20 01:37 | Outpatient (RCR) | payer OTHER, SELFPAY ==
[2020-08-03] MEDS: Heparin 500 UNITS/5 ML SYRINGE IV (13:15)
[2020-08-03] MEDS: Normal Saline Flush 10 ML SYR IVP (13:15)
[2020-08-03 13:23] LABS: Abs Immature Grans 0.01 10^3/uL (0.0-0.06); Absolute Basophil Count 0.05 10^3/uL (0.0-0.2); Absolute Eosinophil Count 0.17 10^3/uL (0.0-0.7); Absolute Lymphocyte Count 1.73 10^3/uL (1.2-3.4); Absolute Monocyte Count 0.68 10^3/uL (0.1-0.8); Absolute Neutrophil Count 2.26 10^3/uL (1.2-6.7); Eosinophils % 3.5; HCT 41.5 % (40.0-50.0); HGB 14.1 g/dL (13.5-17.5); Immature Grans % 0.2; Lymphocytes % 35.3; MCH 29.3 pg (27.0-33.0); MCV 86.3 fL (80-95); MPV 9.4 fL (8.0-11.0); Monocytes % 13.9; Neutrophils % 46.1; Nucleated RBC 0 %; Platelet Count 132 10^3/uL (130-400); RBC 4.81 10^6/uL (4.36-5.78); RDW 14.9 % (11.8-14.1); RDW-SD 43.6 fL
[2020-08-03 13:37] LABS: ALT 48 U/L (16-63); AST 33 U/L (15-37); Albumin 3.7 g/dL (3.4-5.0); Alkaline Phosphatase 68 U/L (46-116); Anion Gap 5.3 mmol/L (3-11); BUN 15 mg/dL (7-18); Bilirubin, Total 0.4 mg/dL (0.2-1.0); CO2 28.7 mmol/L (21.0-32.0); CREATININE 1.44 mg/dL (0.70-1.30); Calcium 9.1 mg/dL (8.5-10.1); Chloride 102 mmol/L (98-107); Estimated GFR 47.45 (mL/min/1.73m2); Glucose 106 mg/dL (74-106); Potassium 3.7 mmol/L (3.5-5.1); Sodium 136 mmol/L (136-145); Total Protein 7.4 g/dL (6.4-8.2)
[2020-08-03 22:38] LABS: CEA 1.4 ng/mL (See Note)
[2020-08-15] MEDS: Normal Saline Flush 10 ML SYR IVP (09:13)
[2020-08-15] MEDS: Heparin 500 UNITS/5 ML SYRINGE IV (09:13)
[2020-08-15 09:18] LABS: Abs Immature Grans 0.01 10^3/uL (0.0-0.06); Absolute Basophil Count 0.04 10^3/uL (0.0-0.2); Absolute Eosinophil Count 0.17 10^3/uL (0.0-0.7); Absolute Monocyte Count 0.21 10^3/uL (0.1-0.8); Absolute Neutrophil Count 2.37 10^3/uL (1.2-6.7); Basophils % 0.9; HCT 42.1 % (40.0-50.0); HGB 14.2 g/dL (13.5-17.5); Immature Grans % 0.2; Lymphocytes % 34.9; MCH 29.8 pg (27.0-33.0); MCHC 33.7 % (32.0-36.0); MCV 88.3 fL (80-95); MPV 10.1 fL (8.0-11.0); Monocytes % 4.9; Neutrophils % 55.1; Nucleated RBC 0 %; Platelet Count 101 10^3/uL (130-400); RBC 4.77 10^6/uL (4.36-5.78); RDW 15.2 % (11.8-14.1); RDW-SD 48.6 fL
[2020-08-15 09:31] LABS: ALT 35 U/L (16-63); AST 22 U/L (15-37); Albumin 3.7 g/dL (3.4-5.0); Alkaline Phosphatase 73 U/L (46-116); Anion Gap 5.1 mmol/L (3-11); BUN 20 mg/dL (7-18); Bilirubin, Total 0.9 mg/dL (0.2-1.0); CO2 27.9 mmol/L (21.0-32.0); CREATININE 1.41 mg/dL (0.70-1.30); Calcium 9.1 mg/dL (8.5-10.1); Chloride 103 mmol/L (98-107); Estimated GFR 48.61 (mL/min/1.73m2); Glucose 99 mg/dL (74-106); Potassium 3.9 mmol/L (3.5-5.1); Sodium 136 mmol/L (136-145); Total Protein 7.4 g/dL (6.4-8.2)
[2020-08-15 17:21] LABS: CEA 1.2 ng/mL (See Note)
[2020-08-20 10:51] LABS: Abs Immature Grans 0.01 10^3/uL (0.0-0.06); Absolute Basophil Count 0.02 10^3/uL (0.0-0.2); Absolute Eosinophil Count 0.07 10^3/uL (0.0-0.7); Absolute Lymphocyte Count 1.28 10^3/uL (1.2-3.4); Absolute Neutrophil Count 1.98 10^3/uL (1.2-6.7); Basophils % 0.5; Eosinophils % 1.9; HGB 13.5 g/dL (13.5-17.5); Immature Grans % 0.3; MCH 29.9 pg (27.0-33.0); MCHC 33.8 % (32.0-36.0); MCV 88.5 fL (80-95); MPV 9.7 fL (8.0-11.0); Monocytes % 8.2; Neutrophils % 54.1; Nucleated RBC 0 %; Platelet Count 105 10^3/uL (130-400); RBC 4.52 10^6/uL (4.36-5.78); RDW 16.4 % (11.8-14.1); RDW-SD 49.9 fL; WBC 3.66 10^3/uL (4.4-10.8)
[2020-08-20] MEDS: Normal Saline Flush 10 ML SYR IVP (10:53)
[2020-08-20 11:01] LABS: ALT 41 U/L (16-63); AST 30 U/L (15-37); Albumin 3.6 g/dL (3.4-5.0); Alkaline Phosphatase 72 U/L (46-116); Anion Gap 10.2 mmol/L (3-11); BUN 17 mg/dL (7-18); Bilirubin, Total 0.5 mg/dL (0.2-1.0); CO2 24.8 mmol/L (21.0-32.0); CREATININE 1.39 mg/dL (0.70-1.30); Calcium 9.1 mg/dL (8.5-10.1); Chloride 104 mmol/L (98-107); Estimated GFR 49.42 (mL/min/1.73m2); Glucose 111 mg/dL (74-106); Potassium 3.7 mmol/L (3.5-5.1); Sodium 139 mmol/L (136-145); Total Protein 7.3 g/dL (6.4-8.2)
== END 2020-08-30 23:59 | disposition home or self-care (01) ==
LOC: INF 01:37
PROVIDERS: PCP Family Medicine; Visit Provider Internal Medicine Hematology & Oncology
DX: C20 Malignant neoplasm of rectum (principal); Z45.2 Encounter for adjustment and management of vascular access device
CPT/HCPCS: 36591; 80053; 82378; 85025

== ENCOUNTER 2020-09-24 02:57 | Outpatient (RCR) | payer MEDICARE, SELFPAY ==
[2020-09-03] MEDS: Normal Saline Flush 10 ML SYR IVP (10:10)
[2020-09-03 10:26] LABS: Absolute Basophil Count 0.05 10^3/uL (0.0-0.2); Absolute Eosinophil Count 0.03 10^3/uL (0.0-0.7); Absolute Lymphocyte Count 1.46 10^3/uL (1.2-3.4); Absolute Monocyte Count 0.77 10^3/uL (0.1-0.8); Absolute Neutrophil Count 0.56 10^3/uL (1.2-6.7); Basophils % 1.7; HGB 13.3 g/dL (13.5-17.5); Lymphocytes % 50.9; MCH 30.3 pg (27.0-33.0); MCHC 33.3 % (32.0-36.0); MCV 91.1 fL (80-95); MPV 9.5 fL (8.0-11.0); Monocytes % 26.8; Neutrophils % 19.6; Nucleated RBC 0 %; Platelet Count 157 10^3/uL (130-400); RBC 4.39 10^6/uL (4.36-5.78); RDW 17.9 % (11.8-14.1); RDW-SD 58.3 fL; WBC 2.87 10^3/uL (4.4-10.8)
[2020-09-03 10:42] LABS: ALT 42 U/L (16-63); AST 34 U/L (15-37); Albumin 3.5 g/dL (3.4-5.0); Alkaline Phosphatase 75 U/L (46-116); Anion Gap 8.2 mmol/L (3-11); Anisocytosis 1+; BUN 16 mg/dL (7-18); Bilirubin, Total 0.9 mg/dL (0.2-1.0); CO2 26.8 mmol/L (21.0-32.0); Calcium 9.4 mg/dL (8.5-10.1); Chloride 102 mmol/L (98-107); Diff Comment Diff Reviewed; Estimated GFR 53.39 (mL/min/1.73m2); Glucose 120 mg/dL (74-106); Potassium 3.4 mmol/L (3.5-5.1); Sodium 137 mmol/L (136-145); Total Protein 7.3 g/dL (6.4-8.2)
[2020-09-10] MEDS: Normal Saline Flush 10 ML SYR IVP (07:45)
[2020-09-10 07:46] LABS: Abs Immature Grans 0.02 10^3/uL (0.0-0.06); Absolute Basophil Count 0.07 10^3/uL (0.0-0.2); Absolute Eosinophil Count 0.22 10^3/uL (0.0-0.7); Absolute Lymphocyte Count 1.84 10^3/uL (1.2-3.4); Absolute Monocyte Count 0.66 10^3/uL (0.1-0.8); Absolute Neutrophil Count 1.58 10^3/uL (1.2-6.7); Basophils % 1.6; HGB 14.2 g/dL (13.5-17.5); Immature Grans % 0.5; Lymphocytes % 41.9; MCH 31.6 pg (27.0-33.0); MCHC 33.8 % (32.0-36.0); MCV 93.3 fL (80-95); MPV 9.3 fL (8.0-11.0); Nucleated RBC 0 %; Platelet Count 218 10^3/uL (130-400); RDW 18.2 % (11.8-14.1); RDW-SD 61.9 fL; WBC 4.39 10^3/uL (4.4-10.8)
[2020-09-10 08:04] LABS: ALT 42 U/L (16-63); AST 33 U/L (15-37); Albumin 3.4 g/dL (3.4-5.0); Alkaline Phosphatase 82 U/L (46-116); Anion Gap 6.5 mmol/L (3-11); BUN 17 mg/dL (7-18); Bilirubin, Total 0.4 mg/dL (0.2-1.0); CO2 27.5 mmol/L (21.0-32.0); CREATININE 1.44 mg/dL (0.70-1.30); Calcium 9.2 mg/dL (8.5-10.1); Chloride 103 mmol/L (98-107); Estimated GFR 47.45 (mL/min/1.73m2); Glucose 146 mg/dL (74-106); Potassium 3.7 mmol/L (3.5-5.1); Sodium 137 mmol/L (136-145); Total Protein 7.3 g/dL (6.4-8.2)
[2020-09-24] MEDS: Normal Saline Flush 10 ML SYR IVP (08:55)
[2020-09-24 09:30] LABS: Abs Immature Grans 0.24 10^3/uL (0.0-0.06); Absolute Basophil Count 0.08 10^3/uL (0.0-0.2); Absolute Eosinophil Count 0.24 10^3/uL (0.0-0.7); Absolute Lymphocyte Count 2.12 10^3/uL (1.2-3.4); Absolute Monocyte Count 0.94 10^3/uL (0.1-0.8); Absolute Neutrophil Count 7.43 10^3/uL (1.2-6.7); Basophils % 0.7; Eosinophils % 2.2; HCT 42.5 % (40.0-50.0); HGB 14.4 g/dL (13.5-17.5); Immature Grans % 2.2; Lymphocytes % 19.2; MCH 31.5 pg (27.0-33.0); MCHC 33.9 % (32.0-36.0); MPV 9.6 fL (8.0-11.0); Monocytes % 8.5; Neutrophils % 67.2; Nucleated RBC 0 %; Platelet Count 166 10^3/uL (130-400); RBC 4.57 10^6/uL (4.36-5.78); RDW 17.4 % (11.8-14.1); RDW-SD 58.9 fL; WBC 11.05 10^3/uL (4.4-10.8)
[2020-09-24 09:45] LABS: ALT 28 U/L (16-63); AST 25 U/L (15-37); Albumin 3.4 g/dL (3.4-5.0); Alkaline Phosphatase 109 U/L (46-116); Anion Gap 8.6 mmol/L (3-11); BUN 16 mg/dL (7-18); Bilirubin, Total 0.5 mg/dL (0.2-1.0); CO2 26.4 mmol/L (21.0-32.0); CREATININE 1.49 mg/dL (0.70-1.30); Calcium 9.3 mg/dL (8.5-10.1); Chloride 101 mmol/L (98-107); Estimated GFR 45.61 (mL/min/1.73m2); Glucose 138 mg/dL (74-106); Potassium 3.4 mmol/L (3.5-5.1); Sodium 136 mmol/L (136-145); Total Protein 7.5 g/dL (6.4-8.2)
[2020-09-24 17:48] LABS: CEA 1.2 ng/mL (See Note)
== END 2020-09-30 23:59 | disposition home or self-care (01) ==
LOC: INF 02:57
PROVIDERS: PCP Family Medicine; Visit Provider Internal Medicine Hematology & Oncology
DX: C20 Malignant neoplasm of rectum (principal); Z45.2 Encounter for adjustment and management of vascular access device
CPT/HCPCS: 36591; 80053; 82378; 85025

== ENCOUNTER 2020-10-18 01:02 | Outpatient (CLI) | payer MEDICARE, SELFPAY ==
[2020-10-18] MEDS: Breeza Beverage 473 ML BTL PO ×2 (09:19→09:20)
[2020-10-18] MEDS: Omnipaque 350 MG/ML 50 ML BTL IJ (09:19)
--- NOTE | 2020-10-18 10:00 | DI.CT_ITS ---
EXAM: CT CHEST/ABD/PEL W CLINICAL HISTORY: RECTAL CA,C20,ASSESS TREATMENT RESPONSE. TECHNIQUE: Imaging Protocol: Axial computed tomography images with coronal and sagittal reformatted images were created and reviewed CONTRAST MATERIAL: Intravenous: Omnipaque 350 Contrast volume:100 ml Oral: Yes COMPARISON: CT CT CHEST/ABD/PEL W from 08/15/2020 FINDINGS: CHEST: LUNGS: In the right lung there is again noted the previously described solid 6 millimeter nodule on t he junction of the right upper and right middle lobe region which is probably a pseudo nodule at the pleural reflection between the right upper and right middle lobes and remains unchanged.. There are no new significant right lung nodules. Platelike atelectasis is noted in the posterior right lung ba se. There is mild subpleural infiltrate in the lateral segment of the right middle lobe noted which is not associated with pleural effusion. In the opposite-left lung there are no new significant nodules nor infiltrates nor pleural effusion. Some platelike atelectasis is noted in the posterior basal segment of the left lower lobe, unchanged . MEDIASTINUM: There is no new hilar nor mediastinal adenopathy. There is no supraclavicular adenopath y. No axillary adenopathy. Subtle suggestion of a possible small nodule in the left thyroid lobe. Thyroid gland itself exhibi ts normal size.Distal tip of the right-sided Port-A-Cath is in the lower SVC. CARDIAC: Heart size is normal. There is no pericardial effusion.Caliber of the thoracic aorta is wit hin normal limits. OSSEOUS: No significant osseous lesions.. ABDOMEN: There is no ascites. LIVER: There is no element of hepatic steatosis now evident. There are no discrete ominous focal hep atic lesions nor dilatation of intrahepatic ducts. GALLBLADDER/BILIARY: No obvious gallbladder pathology. CBD is not dilated. PANCREAS: No evidence of pancreatic mass nor dilatation of the pancreatic duct. SPLEEN: Spleen is not enlarged. There are no intrasplenic lesions. Splenic and portal veins are samaniego nt. ADRENALS: There are no significant adrenal masses. KIDNEYS: No calculi nor hydronephrosis. No solid renal masses. Previously described benign cyst in th e posterior right kidney is unchanged. No calculi nor hydronephrosis. No hydroureter. 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 There is no significant arterial megaly in the calcified commo n iliac arteries nor in the external iliac arteries nor within the femoral arteries. ABDOMINAL WALL/GI: No evidence of significant anterior abdominal wall hernia. No bowel obstruction. PELVIS: LYMPH NODES: There is no intrapelvic nor inguinal adenopathy. GI: No evidence of appendicitis.There is sigmoid diverticuli but no evidence of obvious acute diverti culitis.No obvious discernible rectal mass evident nor perirectal streaking. URINARY BLADDER: No calculi nor masses evident REPRODUCTIVE: Prostate gland size is upper normal. Seminal vesicles unremarkable OSSEOUS: No lytic osseous lesions evident. There are inferior endplate Schmorl's nodes evident in L2 and L3, unchanged. IMPRESSION: 1. Relatively stable findings when compared to the prior CT scan of July 2020. Solitary pseudo n odule in the right lung again noted. No new ominous pulmonary nodules nor pleural effusions nor intr athoracic adenopathy. 2. Hepatic steatosis but no ominous focal hepatic lesions. 3. Stable benign cyst in the posterior right kidney again noted periods no solid renal masses. No hy dronephrosis. 4. No lytic osseous lesions evident. RADIATION DOSE DELIVERED: 1,490.89mGy.cm Total DLP DATA REPOSITORY: All CT scans at this facility are submitted to the National Radiology Data Registry (NRDR) Dose Index Registry (DIR) with the [employer] (ACR). RADIATION OPTIMIZATION: All CT scans at this facility use at least one of these dose optimization te chniques: automated exposure control; mA and/or kV adjustment per patient size (includes targeted exa ms where dose is matched to clinical indication); or iterative reconstruction.
[2020-10-18] MEDS: Normal Saline - Diluent 50 ML VIAL IV (10:13)
[2020-10-18] MEDS: Omnipaque 350 MG/ML 100 ML BTL IJ (10:14)
[2020-10-18] MEDS: Normal Saline Flush 10 ML SYR IVP (10:16)
== END 2020-10-18 01:03 ==
PROVIDERS: PCP Family Medicine; Visit Provider Nurse Practitioner Family
DX: C20 Malignant neoplasm of rectum (principal); R91.1 Solitary pulmonary nodule; K76.0 Fatty (change of) liver, not elsewhere classified
CPT/HCPCS: 74177; 96523; 71260; J3490; Q9967

== ENCOUNTER 2020-10-22 02:35 | Outpatient (RCR) | payer MEDICARE, SELFPAY ==
[2020-10-08] MEDS: Normal Saline Flush 10 ML SYR IVP (10:15)
[2020-10-08 10:41] LABS: Abs Immature Grans 0.23 10^3/uL (0.0-0.06); Absolute Basophil Count 0.09 10^3/uL (0.0-0.2); Absolute Lymphocyte Count 2.43 10^3/uL (1.2-3.4); Absolute Monocyte Count 1.35 10^3/uL (0.1-0.8); Basophils % 0.7; Eosinophils % 0.5; HCT 41.5 % (40.0-50.0); Immature Grans % 1.7; Lymphocytes % 18.4; MCH 31.5 pg (27.0-33.0); MCHC 33.7 % (32.0-36.0); MCV 93.3 fL (80-95); MPV 10.1 fL (8.0-11.0); Monocytes % 10.2; Neutrophils % 68.5; Nucleated RBC 0 %; Platelet Count 119 10^3/uL (130-400); RBC 4.45 10^6/uL (4.36-5.78); RDW 17.8 % (11.8-14.1); RDW-SD 60.2 fL; WBC 13.23 10^3/uL (4.4-10.8)
[2020-10-08 10:42] LABS: Absolute Eosinophil Count 0.07 10^3/uL (0.0-0.7); Absolute Neutrophil Count 9.06 10^3/uL (1.2-6.7)
[2020-10-08 10:56] LABS: ALT 33 U/L (16-63); AST 26 U/L (15-37); Albumin 3.3 g/dL (3.4-5.0); Alkaline Phosphatase 147 U/L (46-116); Anion Gap 7.7 mmol/L (3-11); BUN 12 mg/dL (7-18); Bilirubin, Total 0.4 mg/dL (0.2-1.0); CO2 28.3 mmol/L (21.0-32.0); CREATININE 1.2 mg/dL (0.70-1.30); Chloride 103 mmol/L (98-107); Estimated GFR 58.56 (mL/min/1.73m2); Glucose 115 mg/dL (74-106); Potassium 3.5 mmol/L (3.5-5.1); Sodium 139 mmol/L (136-145); Total Protein 7.2 g/dL (6.4-8.2)
[2020-10-08 18:29] LABS: CEA 1.5 ng/mL (See Note)
[2020-10-18] MEDS: Normal Saline Flush 10 ML SYR IVP (08:32)
[2020-10-18] MEDS: Heparin 500 UNITS/5 ML SYRINGE IV (08:32)
== END 2020-10-28 23:59 | disposition home or self-care (01) ==
LOC: INF 02:35
PROVIDERS: PCP Family Medicine; Visit Provider Internal Medicine Hematology & Oncology
DX: C20 Malignant neoplasm of rectum (principal); Z45.2 Encounter for adjustment and management of vascular access device
CPT/HCPCS: 36591; 80053; 96523; 82378; 85025

== ENCOUNTER 2020-11-26 08:00 | Outpatient (RCR) | payer MEDICARE, SELFPAY ==
[2020-10-29 09:45] LABS: Abs Immature Grans 0.05 10^3/uL (0.0-0.06); Absolute Basophil Count 0.06 10^3/uL (0.0-0.2); Absolute Eosinophil Count 0.09 10^3/uL (0.0-0.7); Absolute Lymphocyte Count 1.64 10^3/uL (1.2-3.4); Absolute Monocyte Count 1.11 10^3/uL (0.1-0.8); Absolute Neutrophil Count 4.51 10^3/uL (1.2-6.7); Basophils % 0.8; Eosinophils % 1.2; HCT 40.2 % (40.0-50.0); HGB 13.5 g/dL (13.5-17.5); Immature Grans % 0.7; MCH 32.5 pg (27.0-33.0); MCHC 33.6 % (32.0-36.0); MCV 96.9 fL (80-95); MPV 9.2 fL (8.0-11.0); Monocytes % 14.9; Neutrophils % 60.4; Nucleated RBC 0 %; Platelet Count 141 10^3/uL (130-400); RBC 4.15 10^6/uL (4.36-5.78); RDW 17.2 % (11.8-14.1); RDW-SD 61.6 fL; WBC 7.46 10^3/uL (4.4-10.8)
[2020-10-29 09:58] LABS: ALT 35 U/L (16-63); AST 31 U/L (15-37); Albumin 3.2 g/dL (3.4-5.0); Alkaline Phosphatase 95 U/L (46-116); Anion Gap 5.5 mmol/L (3-11); BUN 13 mg/dL (7-18); Bilirubin, Total 0.6 mg/dL (0.2-1.0); CO2 26.5 mmol/L (21.0-32.0); CREATININE 1.2 mg/dL (0.70-1.30); Calcium 9.2 mg/dL (8.5-10.1); Chloride 106 mmol/L (98-107); Estimated GFR 58.56 (mL/min/1.73m2); Glucose 118 mg/dL (74-106); Potassium 3.5 mmol/L (3.5-5.1); Sodium 138 mmol/L (136-145); Total Protein 6.8 g/dL (6.4-8.2)
[2020-10-29] MEDS: Heparin 500 UNITS/5 ML SYRINGE IV (10:03)
[2020-10-29] MEDS: Normal Saline Flush 10 ML SYR IVP (10:03)
[2020-10-29 17:51] LABS: CEA 1.4 ng/mL (See Note)
[2020-11-09] MEDS: Normal Saline Flush 10 ML SYR IVP (10:04)
[2020-11-09] MEDS: Heparin 500 UNITS/5 ML SYRINGE IV (10:04)
[2020-11-09 10:11] LABS: Abs Immature Grans 0.02 10^3/uL (0.0-0.06); Absolute Basophil Count 0.04 10^3/uL (0.0-0.2); Absolute Eosinophil Count 0.34 10^3/uL (0.0-0.7); Absolute Lymphocyte Count 0.94 10^3/uL (1.2-3.4); Absolute Neutrophil Count 2.22 10^3/uL (1.2-6.7); Eosinophils % 8.2; HCT 38.5 % (40.0-50.0); HGB 13.1 g/dL (13.5-17.5); Immature Grans % 0.5; Lymphocytes % 22.6; MCH 33.5 pg (27.0-33.0); MCV 98.5 fL (80-95); MPV 9.9 fL (8.0-11.0); Monocytes % 14.4; Neutrophils % 53.3; Nucleated RBC 0 %; Platelet Count 145 10^3/uL (130-400); RBC 3.91 10^6/uL (4.36-5.78); RDW 16.7 % (11.8-14.1); RDW-SD 59.8 fL; WBC 4.16 10^3/uL (4.4-10.8)
[2020-11-09 10:27] LABS: ALT 31 U/L (16-63); AST 33 U/L (15-37); Albumin 3.3 g/dL (3.4-5.0); Alkaline Phosphatase 84 U/L (46-116); Anion Gap 8.7 mmol/L (3-11); BUN 14 mg/dL (7-18); Bilirubin, Total 0.6 mg/dL (0.2-1.0); CO2 26.3 mmol/L (21.0-32.0); CREATININE 1.1 mg/dL (0.70-1.30); Calcium 9.1 mg/dL (8.5-10.1); Chloride 105 mmol/L (98-107); Glucose 109 mg/dL (74-106); Potassium 3.8 mmol/L (3.5-5.1); Sodium 140 mmol/L (136-145); Total Protein 6.9 g/dL (6.4-8.2)
[2020-11-19] MEDS: Normal Saline Flush 10 ML SYR IVP (12:10)
[2020-11-19] MEDS: Heparin 500 UNITS/5 ML SYRINGE IV (12:10)
[2020-11-19 12:18] LABS: Abs Immature Grans 0.02 10^3/uL (0.0-0.06); Absolute Basophil Count 0.04 10^3/uL (0.0-0.2); Absolute Monocyte Count 0.66 10^3/uL (0.1-0.8); Basophils % 0.7; Eosinophils % 11.6; HCT 38.6 % (40.0-50.0); HGB 13.1 g/dL (13.5-17.5); Immature Grans % 0.3; MCHC 33.9 % (32.0-36.0); MCV 97.2 fL (80-95); Neutrophils % 61.4; Nucleated RBC 0 %; Platelet Count 141 10^3/uL (130-400); RBC 3.97 10^6/uL (4.36-5.78); RDW 16.5 % (11.8-14.1); RDW-SD 57.6 fL; WBC 6.02 10^3/uL (4.4-10.8)
[2020-11-19 12:36] LABS: ALT 29 U/L (16-63); AST 29 U/L (15-37); Albumin 3.7 g/dL (3.4-5.0); Alkaline Phosphatase 74 U/L (46-116); BUN 10 mg/dL (7-18); Bilirubin, Total 0.9 mg/dL (0.2-1.0); CREATININE 1.2 mg/dL (0.70-1.30); Calcium 9.3 mg/dL (8.5-10.1); Chloride 103 mmol/L (98-107); Estimated GFR 58.56 (mL/min/1.73m2); Glucose 100 mg/dL (74-106); Potassium 3.6 mmol/L (3.5-5.1); Sodium 140 mmol/L (136-145); Total Protein 7.1 g/dL (6.4-8.2)
[2020-11-26] MEDS: Normal Saline Flush 10 ML SYR IVP (08:26)
[2020-11-26] MEDS: Heparin 500 UNITS/5 ML SYRINGE IV (08:26)
[2020-11-26 08:33] LABS: Abs Immature Grans 0.01 10^3/uL (0.0-0.06); Absolute Basophil Count 0.03 10^3/uL (0.0-0.2); Absolute Eosinophil Count 0.54 10^3/uL (0.0-0.7); Absolute Lymphocyte Count 0.55 10^3/uL (1.2-3.4); Absolute Monocyte Count 0.48 10^3/uL (0.1-0.8); Absolute Neutrophil Count 2.49 10^3/uL (1.2-6.7); Basophils % 0.7; Eosinophils % 13.2; HCT 35.5 % (40.0-50.0); HGB 12.1 g/dL (13.5-17.5); Immature Grans % 0.2; Lymphocytes % 13.4; MCH 33.7 pg (27.0-33.0); MCHC 34.1 % (32.0-36.0); MCV 98.9 fL (80-95); Monocytes % 11.7; Neutrophils % 60.8; Nucleated RBC 0 %; Platelet Count 126 10^3/uL (130-400); RBC 3.59 10^6/uL (4.36-5.78); RDW 16.8 % (11.8-14.1); RDW-SD 60.7 fL
[2020-11-26 08:48] LABS: ALT 27 U/L (16-63); AST 27 U/L (15-37); Albumin 3.3 g/dL (3.4-5.0); Alkaline Phosphatase 64 U/L (46-116); Anion Gap 6.7 mmol/L (3-11); BUN 12 mg/dL (7-18); Bilirubin, Total 0.7 mg/dL (0.2-1.0); CO2 27.3 mmol/L (21.0-32.0); CREATININE 1.2 mg/dL (0.70-1.30); Calcium 8.8 mg/dL (8.5-10.1); Chloride 106 mmol/L (98-107); Estimated GFR 58.56 (mL/min/1.73m2); Glucose 129 mg/dL (74-106); Potassium 3.2 mmol/L (3.5-5.1); Sodium 140 mmol/L (136-145); Total Protein 6.6 g/dL (6.4-8.2)
[2020-11-26 16:36] LABS: CEA 1.1 ng/mL (See Note)
== END 2020-11-28 23:59 | disposition home or self-care (01) ==
LOC: INF 08:00
PROVIDERS: PCP Family Medicine; Visit Provider Internal Medicine Hematology & Oncology
DX: C20 Malignant neoplasm of rectum (principal); Z45.2 Encounter for adjustment and management of vascular access device
CPT/HCPCS: 36591; 80053; 82378; 85025

== ENCOUNTER 2020-12-07 12:39 | Outpatient (RCR) | payer MEDICARE, SELFPAY ==
[2020-12-07] MEDS: Normal Saline Flush 10 ML SYR IVP (12:55)
[2020-12-07] MEDS: Heparin 500 UNITS/5 ML SYRINGE IV (12:55)
[2020-12-07 12:57] LABS: Abs Immature Grans 0.02 10^3/uL (0.0-0.06); Absolute Basophil Count 0.04 10^3/uL (0.0-0.2); Absolute Eosinophil Count 0.17 10^3/uL (0.0-0.7); Absolute Lymphocyte Count 0.59 10^3/uL (1.2-3.4); Absolute Monocyte Count 0.63 10^3/uL (0.1-0.8); Absolute Neutrophil Count 5.27 10^3/uL (1.2-6.7); Basophils % 0.6; Eosinophils % 2.5; HCT 36.2 % (40.0-50.0); HGB 12.3 g/dL (13.5-17.5); Immature Grans % 0.3; Lymphocytes % 8.8; MCH 34.3 pg (27.0-33.0); MCV 100.8 fL (80-95); Monocytes % 9.4; Neutrophils % 78.4; Nucleated RBC 0 %; Platelet Count 157 10^3/uL (130-400); RBC 3.59 10^6/uL (4.36-5.78); RDW-SD 66.4 fL; WBC 6.72 10^3/uL (4.4-10.8)
[2020-12-07 13:12] LABS: ALT 27 U/L (16-63); AST 27 U/L (15-37); Albumin 3.7 g/dL (3.4-5.0); Alkaline Phosphatase 64 U/L (46-116); Anion Gap 6.2 mmol/L (3-11); BUN 13 mg/dL (7-18); Bilirubin, Total 0.9 mg/dL (0.2-1.0); CO2 27.8 mmol/L (21.0-32.0); CREATININE 1.2 mg/dL (0.70-1.30); Calcium 9.5 mg/dL (8.5-10.1); Chloride 104 mmol/L (98-107); Estimated GFR 58.56 (mL/min/1.73m2); Glucose 98 mg/dL (74-106); Potassium 3.3 mmol/L (3.5-5.1); Sodium 138 mmol/L (136-145); Total Protein 6.9 g/dL (6.4-8.2)
== END 2020-12-28 23:59 | disposition home or self-care (01) ==
LOC: INF 12:39
PROVIDERS: PCP Family Medicine; Visit Provider Internal Medicine Hematology & Oncology
DX: C20 Malignant neoplasm of rectum (principal); Z45.2 Encounter for adjustment and management of vascular access device
CPT/HCPCS: 36591; 80053; 82378; 85025

== ENCOUNTER 2021-02-08 15:31 | Outpatient (CLI) | payer MEDICARE, SELFPAY ==
[2021-02-08 15:54] LABS: Abs Immature Grans 0.02 10^3/uL (0.0-0.06); Absolute Basophil Count 0.06 10^3/uL (0.0-0.2); Absolute Eosinophil Count 0.41 10^3/uL (0.0-0.7); Absolute Lymphocyte Count 1.06 10^3/uL (1.2-3.4); Absolute Monocyte Count 0.52 10^3/uL (0.1-0.8); Absolute Neutrophil Count 3.09 10^3/uL (1.2-6.7); Basophils % 1.2; Eosinophils % 7.9; HCT 41.3 % (40.0-50.0); HGB 13.7 g/dL (13.5-17.5); Immature Grans % 0.4; Lymphocytes % 20.5; MCH 33.7 pg (27.0-33.0); MCHC 33.2 % (32.0-36.0); MCV 101.5 fL (80-95); MPV 9.4 fL (8.0-11.0); Monocytes % 10.1; Neutrophils % 59.9; Nucleated RBC 0 %; Platelet Count 187 10^3/uL (130-400); RBC 4.07 10^6/uL (4.36-5.78); RDW 12.5 % (11.8-14.1); RDW-SD 46.6 fL; WBC 5.16 10^3/uL (4.4-10.8)
[2021-02-08 16:05] LABS: ALT 26 U/L (16-63); AST 23 U/L (15-37); Albumin 3.7 g/dL (3.4-5.0); Alkaline Phosphatase 73 U/L (46-116); Anion Gap 6.7 mmol/L (3-11); BUN 24 mg/dL (7-18); Bilirubin, Total 0.4 mg/dL (0.2-1.0); CO2 28.3 mmol/L (21.0-32.0); CREATININE 1.3 mg/dL (0.70-1.30); Calcium 9.1 mg/dL (8.5-10.1); Chloride 107 mmol/L (98-107); Estimated GFR 53.25 (mL/min/1.73m2); Glucose 89 mg/dL (74-106); Potassium 4.2 mmol/L (3.5-5.1); Sodium 142 mmol/L (136-145); Total Protein 7.1 g/dL (6.4-8.2)
[2021-02-11 09:49] LABS: CEA <2.0 ng/mL (See Note)
== END 2021-02-08 15:32 | disposition home or self-care (01) ==
LOC: LBO 15:34
PROVIDERS: PCP Nurse Practitioner Family; Visit Provider Internal Medicine Hematology & Oncology
DX: C20 Malignant neoplasm of rectum (principal)
CPT/HCPCS: 36415; 80053; 82378; 85025

== ENCOUNTER 2021-09-12 03:46 | Outpatient (RCR) | payer MEDICARE, SELFPAY ==
[2021-09-12] MEDS: Heparin 500 UNITS/5 ML SYRINGE (14:16)
[2021-09-12 14:17] LABS: Abs Immature Grans 0.01 10^3/uL (0.0-0.06); Absolute Basophil Count 0.06 10^3/uL (0.0-0.2); Absolute Eosinophil Count 0.34 10^3/uL (0.0-0.7); Absolute Lymphocyte Count 1.43 10^3/uL (1.2-3.4); Absolute Monocyte Count 0.61 10^3/uL (0.1-0.8); Absolute Neutrophil Count 4.76 10^3/uL (1.2-6.7); Basophils % 0.8; Eosinophils % 4.7; HCT 44.7 % (40.0-50.0); HGB 14.7 g/dL (13.5-17.5); Immature Grans % 0.1; Lymphocytes % 19.8; MCH 31.1 pg (27.0-33.0); MCHC 32.9 % (32.0-36.0); MCV 94.7 fL (80-95); MPV 9.6 fL (8.0-11.0); Monocytes % 8.5; Neutrophils % 66.1; Nucleated RBC 0 %; Platelet Count 220 10^3/uL (130-400); RBC 4.72 10^6/uL (4.36-5.78); RDW 12.7 % (11.8-14.1); RDW-SD 44.6 fL; WBC 7.21 10^3/uL (4.4-10.8)
[2021-09-12] MEDS: Normal Saline Flush 10 ML SYR IVP (14:17)
[2021-09-12 14:31] LABS: ALT 23 U/L (16-63); AST 18 U/L (15-37); Alkaline Phosphatase 85 U/L (46-116); Anion Gap 8.6 mmol/L (3-11); BUN 18 mg/dL (7-18); Bilirubin, Total 0.4 mg/dL (0.2-1.0); CO2 27.4 mmol/L (21.0-32.0); CREATININE 1.5 mg/dL (0.70-1.30); Calcium 8.7 mg/dL (8.5-10.1); Chloride 102 mmol/L (98-107); Estimated GFR 45.14 (mL/min/1.73m2); Glucose 119 mg/dL (74-106); Potassium 3.6 mmol/L (3.5-5.1); Sodium 138 mmol/L (136-145); Total Protein 7.2 g/dL (6.4-8.2)
[2021-09-12 22:51] LABS: CEA 1.1 ng/mL (See Note)
== END 2021-09-30 23:59 | disposition home or self-care (01) ==
LOC: INF 03:46
PROVIDERS: PCP Nurse Practitioner Family; Visit Provider Internal Medicine Hematology & Oncology
DX: C20 Malignant neoplasm of rectum (principal); Z45.2 Encounter for adjustment and management of vascular access device
CPT/HCPCS: 36591; 80053; 82378; 85025

== ENCOUNTER 2022-01-30 02:01 | Outpatient (RCR) | payer MEDICARE, SELFPAY ==
[2022-01-30] MEDS: Heparin 500 UNITS/5 ML SYRINGE IV (08:11)
[2022-01-30] MEDS: Normal Saline Flush 10 ML SYR IVP (08:12)
== END 2022-02-27 23:59 | disposition home or self-care (01) ==
LOC: INF 02:01
PROVIDERS: PCP Nurse Practitioner Family; Visit Provider Internal Medicine Hematology & Oncology
DX: Z45.2 Encounter for adjustment and management of vascular access device (principal)
CPT/HCPCS: 96523

== ENCOUNTER 2023-02-27 00:43 | Outpatient (RCR) | payer MEDICARE, SELFPAY ==
[2023-02-27] MEDS: Normal Saline Flush 10 ML SYR IVP (14:44)
[2023-02-27] MEDS: Heparin 500 UNITS/5 ML SYRINGE IV (14:45)
[2023-02-27 14:48] LABS: Abs Immature Grans 0.01 10^3/uL (0.0-0.06); Absolute Basophil Count 0.06 10^3/uL (0.0-0.2); Absolute Eosinophil Count 0.22 10^3/uL (0.0-0.7); Absolute Lymphocyte Count 1.45 10^3/uL (1.2-3.4); Absolute Monocyte Count 0.44 10^3/uL (0.1-0.8); Absolute Neutrophil Count 4.21 10^3/uL (1.2-6.7); Basophils % 0.9; Eosinophils % 3.4; HCT 42.7 % (40.0-50.0); HGB 14.8 g/dL (13.5-17.5); Immature Grans % 0.2; Lymphocytes % 22.7; MCHC 34.7 % (32.0-36.0); MCV 92 fL (80-95); MPV 9.7 fL (8.0-11.0); Monocytes % 6.9; Neutrophils % 65.9; Platelet Count 212 10^3/uL (130-400); RBC 4.63 10^6/uL (4.36-5.78); RDW 13.1 % (11.8-14.1); RDW-SD 44.3 fL; WBC 6.39 10^3/uL (4.4-10.8)
[2023-02-27 15:04] LABS: ALT 20 U/L (16-63); AST 19 U/L (15-37); Albumin 3.9 g/dL (3.4-5.0); Alkaline Phosphatase 81 U/L (46-116); Anion Gap 6.7 mmol/L (3-11); BUN 22 mg/dL (7-18); Bilirubin, Total 0.3 mg/dL (0.2-1.0); CO2 30.3 mmol/L (21.0-32.0); CREATININE 1.4 mg/dL (0.70-1.30); Calcium 8.8 mg/dL (8.5-10.1); Chloride 102 mmol/L (98-107); Estimated GFR 50.49 (mL/min/1.73m2); Glucose 123 mg/dL (74-106); Potassium 3.6 mmol/L (3.5-5.1); Sodium 139 mmol/L (136-145); Total Protein 7.2 g/dL (6.4-8.2)
== END 2023-02-27 23:59 | disposition home or self-care (01) ==
LOC: INF 00:43
PROVIDERS: PCP Nurse Practitioner Family; Visit Provider Internal Medicine Hematology & Oncology
DX: C20 Malignant neoplasm of rectum (principal); Z45.2 Encounter for adjustment and management of vascular access device
CPT/HCPCS: 36591; 80053; 85025

== ENCOUNTER 2023-07-02 09:27 | Outpatient (CLI) | payer MEDICARE, SELFPAY ==
[2023-07-02 12:53] LABS: Calculated LDL 110 mg/dL (<100); Cholesterol 203 mg/dL (<200); HDL Cholesterol 45 mg/dL (40-60); Triglyceride 244 mg/dL (<150)
== END 2023-07-02 09:28 | disposition home or self-care (01) ==
PROVIDERS: PCP Nurse Practitioner Family; Visit Provider Nurse Practitioner Family
DX: E78.00 Pure hypercholesterolemia, unspecified (principal)
CPT/HCPCS: 36415; 80061

== ENCOUNTER 2023-09-23 03:02 | Outpatient (CLI) | payer MEDICARE, SELFPAY ==
[2023-09-23 19:07] LABS: CEA 1.5 ng/mL (See Note)
== END 2023-09-23 03:03 | disposition home or self-care (01) ==
LOC: LBO 03:03
PROVIDERS: PCP Nurse Practitioner Family; Visit Provider Internal Medicine Hematology & Oncology
DX: C20 Malignant neoplasm of rectum (principal)
CPT/HCPCS: 36415; 82378

== ENCOUNTER 2024-05-20 16:28 | Outpatient (REF) | payer MEDICARE, SELFPAY ==
--- NOTE | 2024-05-20 09:05 | SKI_PTH ---
PATIENT: Aly Smith LOC: [facility] U#:[id number] AGE/SX: 83/M ROOM: RE05/20/[address]: Bari Roberto DO : 1940 BED: DIS: 05/20/2024 SPEC #: [id number] RECD: 05/20/24 18:40 STATUS: KADE REPati #: [id number] RAINA: 05/20/24 09:[address]: Bari Roberto DEPT: Surgical Specimen RECD BY: Joan Porter ENTERED: 05/20/24 18:42 SP TYPE: SKI OT DR: Cuauhtemoc Carrasco, [employer] Tissues: 1 - SKIN BIOPSY(SHAVE/PUNCH) 2 - SKIN BIOPSY(SHAVE/PUNCH) 3 - SKIN BIOPSY(SHAVE/PUNCH) 4 - SKIN BIOPSY(SHAVE/PUNCH) 5 - SKIN BIOPSY(SHAVE/PUNCH) 6 - SKIN BIOPSY(SHAVE/PUNCH) Procedures: SKIN LEVEL 4 Comments: [id number]
== END 2024-05-20 16:29 | disposition home or self-care (01) ==
LOC: LBN 16:28
PROVIDERS: PCP Nurse Practitioner Family; Visit Provider Otolaryngology Otolaryngology/Facial Plastic Surgery
DX: L81.9 Disorder of pigmentation, unspecified (principal); L57.8 Other skin changes due to chronic exposure to nonionizing radiation; Z83.2 Family history of diseases of the blood and blood-forming organs and certain disorders involving the immune mechanism; N18.2 Chronic kidney disease, stage 2 (mild); L82.1 Other seborrheic keratosis; L57.0 Actinic keratosis; L81.4 Other melanin hyperpigmentation
CPT/HCPCS: 88305

== ENCOUNTER 2024-07-01 02:44 | Outpatient (CLI) | payer MEDICARE, SELFPAY ==
[2024-07-01 18:58] LABS: CEA 1.1 ng/mL (See Note)
== END 2024-07-01 02:45 | disposition home or self-care (01) ==
PROVIDERS: PCP Nurse Practitioner Family; Visit Provider Internal Medicine Hematology & Oncology
DX: C20 Malignant neoplasm of rectum (principal)
CPT/HCPCS: 36415; 82378

== ENCOUNTER 2024-07-07 08:32 | Outpatient (CLI) | payer MEDICARE, SELFPAY ==
[2024-07-07 12:44] LABS: Anion Gap 7.3 mmol/L (3-11); BUN 17 mg/dL (7-18); CO2 30.7 mmol/L (21.0-32.0); CREATININE 1.6 mg/dL (0.70-1.30); Calcium 9.9 mg/dL (8.5-10.1); Calculated LDL 120 mg/dL (<100); Chloride 104 mmol/L (98-107); Cholesterol 194 mg/dL (<200); Estimated GFR 42.75 (mL/min/1.73m2); Glucose 97 mg/dL (74-106); HDL Cholesterol 46 mg/dL (40-60); Potassium 4.2 mmol/L (3.5-5.1); Sodium 142 mmol/L (136-145); Triglyceride 144 mg/dL (<150)
== END 2024-07-07 08:33 | disposition home or self-care (01) ==
LOC: LOS 08:33
PROVIDERS: PCP Nurse Practitioner Family; Visit Provider Nurse Practitioner Family
DX: Z13.6 Encounter for screening for cardiovascular disorders (principal); Z13.1 Encounter for screening for diabetes mellitus; I10 Essential (primary) hypertension; C19 Malignant neoplasm of rectosigmoid junction
CPT/HCPCS: 36415; 80048; 80061

== ENCOUNTER 2025-06-23 14:47 | Outpatient (CLI) | payer MEDICARE, SELFPAY ==
--- NOTE | 2025-06-23 11:15 | DI.RAD_ITS ---
Exam(s) XR HIP RT COMPLETE AP PELVIS EXAM: XR HIP RT COMPLETE AP PELVIS CLINICAL HISTORY: evalutate pathology,acute rt hip pain, m25.551. TECHNIQUE: 2D digital imaging was performed. Two views COMPARISON: CT CT CHEST/ABD/PEL W from 10/18/2020 FINDINGS: BONES: No acute fracture is present. No bony destructive lesion is seen. Subchondral cyst in superior acetabulum, stable from 2020. Calcification in the right acetabular labrum, also present previously. JOINTS: No dislocation present. Joint spaces are maintained. Are mild degenerative changes at the inferior SI joints. SOFT TISSUE: Normal. IMPRESSION: No acute abnormality. DATA REPOSITORY: RADIATION DOSE DELIVERED:
== END 2025-06-23 15:07 ==
LOC: DI 14:48
PROVIDERS: PCP Nurse Practitioner Family; Visit Provider Nurse Practitioner Family
DX: M25.551 Pain in right hip (principal)
CPT/HCPCS: 73502

== ENCOUNTER 2025-06-27 08:55 | Outpatient (CLI) | payer MEDICARE, SELFPAY ==
--- NOTE | 2025-06-27 08:45 | DI.MRI_ITS ---
Exam(s) MR LUMBAR SPINE WO EXAM: MR LUMBAR SPINE WO CLINICAL HISTORY: evaluate pathology, LUMBAR PAIN, LOW BACK PAIN M54.50. TECHNIQUE: Multiplanar multisequence MRI of the Lumbar spine was performed. COMPARISON: MR MRI - LUMBAR SPINE WO CONTRAST from 03/31/[address] CHEST/ABD/PEL W from 10/18/2020 FINDINGS: Conus medullaris is at normal level. There is no evidence of conus mass nor subjacent clumping of intrathecal nerve roots to suggest arachnoiditis. The distal thecal sac appears unremarkable.There is no evidence of Tarlov intrasacral cysts nor other significant findings within the sacral canal Bones:There are no acute fractures nor ominous osseous lesions in the lumbar vertebral bodies and visualized sacrum. There are multilevel endplate Schmorl node invaginations which were not evident on the 2013 MRI study. The largest of these is in the superior endplate of L1. There are intraosseous hemangiomas in the L2 and L3 vertebral bodies noted. With respect to the individual levels... T12-L1: Relatively preserved disc height. Schmorl's node invagination is noted in the mid aspect of the L1 superior endplate with mild surrounding edema and therefore probably subacute. There is no significant height loss of this vertebral body. No disc herniation nor central canal stenosis.No foraminal stenosis L1-2: Preserved disc height. No disc herniation or central canal stenosis. No significant facet arthropathy. No foraminal stenosis. L2-3: Moderate uniform disc space narrowing evident. Mild annular bulging but without a distinct focal disc herniation nor central canal stenosis. Minimal facet joint degenerative change on the right side. Left facet joint unremarkable. No significant foraminal stenosis on either side. Minimal facet joint degenerative changes. L3-4: No significant disc space narrowing. Small Schmorl's node invagination in the mid aspect of the inferior endplate of L3, not associated with surrounding edema. Posteriorly there is no disc herniation. Central canal dimensions are lower normal. There is moderate bilateral facet arthropathy. There is very mild anterolisthesis of L3 upon L4, approximately 2 mm, this related to degenerative changes in the facet joints. There is no foraminal stenosis on the right side. There is mild foraminal stenosis on the left side. L4-5: This level exhibits minimal disc space narrowing. Posteriorly there is facet arthropathy with mild anterolisthesis L4 upon L5. No disc herniation. Central canal dimensions are within normal limits. There is no foraminal stenosis on the left side but there is significant foraminal stenosis on the right side with the exiting right nerve root being impinged between the underlying annulus, the overlying right L4 pedicle and posteriorly by degenerative changes in the right facet joint. Similar impingement is not seen on the opposite-left side at this level. This finding was not evident on MRI scan of 2014. The previously present right-sided disc herniation which was evident at L4-5 level left of center is no longer seen. There is no foraminal stenosis on the left side. Moderate facet arthropathy evident. L5-S1: Preserved disc height. There is right-sided annular bulging with a small focal right paracentral disc protrusion again noted. This contacts the anterior thecal sac but does not cause significant central spinal canal stenosis. There is mild bilateral foraminal stenosis at this level when compared to the 2014 study. Soft tissues: There is a benign cyst in the lateral cortex of the right kidney which measures 2.7 x 2.4 cm. This does not require further workup. IMPRESSION: 1. Multilevel findings as described individually above. 2. The compared to the MRI scan of 2014 the previously present L4-5 herniated disc is no longer seen. However, there is now significant right-sided foraminal stenosis at the L4-5 level with impingement of the exiting right-sided nerve root at this level between annular bulging, the overlying right L4 pedicle and impingement posteriorly by degenerative changes in the facet joint. There are also mild Modic type 1 sub endplate marrow edema changes on both sides of the L4-5 disc space. 3. Mild findings L5-S1 as described above. 4. There are multilevel Schmorl's node invaginations which were not evident in 2014. The 1 which contains some mild intraosseous edema is at the superior endplate of L1. DATA REPOSITORY:
== END 2025-06-27 09:15 ==
LOC: DI 08:55
PROVIDERS: PCP Nurse Practitioner Family; Visit Provider Nurse Practitioner Family
DX: M51.361 Other intervertebral disc degeneration, lumbar region with lower extremity pain only (principal); M99.63 Osseous and subluxation stenosis of intervertebral foramina of lumbar region
CPT/HCPCS: 72148

== ENCOUNTER 2025-07-07 09:58 | Outpatient (CLI) | payer MEDICARE, SELFPAY ==
[2025-07-07 14:38] LABS: Anion Gap 8.5 mmol/L (3-11); BUN 20 mg/dL (7-18); CO2 29.5 mmol/L (21.0-32.0); Calcium 9.3 mg/dL (8.5-10.1); Chloride 102 mmol/L (98-107); Cholesterol 197 mg/dL (<200); Glucose 103 mg/dL (74-106); HDL Cholesterol 38 mg/dL (>or=40); Potassium 4.1 mmol/L (3.5-5.1); Sodium 140 mmol/L (136-145)
== END 2025-07-07 09:59 | disposition home or self-care (01) ==
LOC: LOS 10:01
PROVIDERS: PCP Nurse Practitioner Family; Visit Provider Nurse Practitioner Family
DX: Z13.6 Encounter for screening for cardiovascular disorders (principal); Z13.1 Encounter for screening for diabetes mellitus
CPT/HCPCS: 36415; 80048; 80061